=== PATIENT | female | born 1980 | race Two or more races ===

== ENCOUNTER 2021-01-29 14:33 | Emergency (ER) | payer OTHER ==
[2021-01-29 14:56] VITALS: BMI 32.3
[2021-01-29 14:58] VITALS: TEMP 98.2
[2021-01-29] MEDS ORDERED: KETOROLAC TROMETHAMINE 15 MG/ML VIAL IVPUSH ONE (16:03)
[2021-01-29] MEDS ORDERED: KETOROLAC TROMETHAMINE 30 MG/1 ML VIAL ONE (16:20)
[2021-01-29 17:47] LABS: BASO % 0.3 % (0-2.0); EOS % 0.3 % (0-4.5); HEMATOCRIT 42.4 % (32.4-45.2); HEMOGLOBIN 14.2 GM/dL (10.7-15.3); LYMPH % 20.1 % (8-40); MCH 29.2 pg (25.7-33.7); MCHC 33.5 g/dl (32.0-36.0); MEAN CELL VOLUME 87.1 fl (80-96); MEAN PLT VOLUME 8.6 fl (7.5-11.1); MONO % 4.8 % (3.8-10.2); NEUT % 74.5 % (42.8-82.8); PLATELET COUNT 242 10^3/uL (134-434); RBC 4.87 M/mm3 (3.60-5.2); RDW 13.3 % (11.6-15.6); WHITE BLOOD COUNT 7.6 K/mm3 (4.0-10.0)
[2021-01-29 18:05] LABS: CHLORIDE 104 mmol/L (98-107); SODIUM 137 mmol/L (136-145)
[2021-01-29 18:08] LABS: ALBUMIN 4.4 g/dl (3.4-5.0); ANION GAP 8 MMOL/L (8-16); BLOOD UREA NITROGEN 8.1 mg/dL (7-18); CALCIUM 9.3 mg/dL (8.5-10.1); CO2 25 mmol/L (21-32); GLUCOSE,RANDOM 87 mg/dL (74-106)
[2021-01-29 18:11] LABS: CREATININE 0.9 mg/dL (0.55-1.3); SGOT/AST 24 U/L (15-37); SGPT/ALT 35 U/L (13-61)
[2021-01-29 18:14] LABS: ALK PHOS 65 U/L (45-117); BILIRUBIN,TOTAL 0.3 mg/dL (0.2-1); TOT PROT 8.7 g/dl (6.4-8.2)
[2021-01-29 20:20] VITALS: BP 121/86; PULSE 82
== END 2021-01-29 20:22 | disposition home or self-care (01) ==
LOC: JER 14:33
PROC: 3E0333Z Introduction of Anti-inflammatory into Peripheral Vein, Percutaneous Approach (ICD-10-PCS; principal; 2021-01-29)
DX: I30.9 Acute pericarditis, unspecified (principal)
CPT/HCPCS: 36415; 71275-TC; 80053; 84484; 85025; 93005; 93010; 99285-25; Q9967

== ENCOUNTER 2022-02-11 22:18 | Emergency (ER) | payer OTHER ==
[2022-02-11 22:27] VITALS: BP 158/96; PULSE 88; RESP 18; TEMP 99; BMI 32.3
[2022-02-11] MEDS ORDERED: IBUPROFEN 600 MG TABLET (FP) PO ONE ×2 (22:45→22:46)
[2022-02-11] MEDS ORDERED: METHOCARBAMOL 500 MG TABLET ONE (22:46)
[2022-02-11] MEDS ORDERED: METHOCARBAMOL 500 MG TABLET PO ONE (22:46)
== END 2022-02-11 22:57 | disposition home or self-care (01) ==
LOC: FER 22:18
DX: M62.838 Other muscle spasm (principal)
CPT/HCPCS: 99283-25